=== PATIENT | male | born 1985 ===

== ENCOUNTER 2018-01-16 15:06 | Emergency (ER) | payer MEDICAID ==
[2018-01-16] MEDS ORDERED: Naloxone 0.4 mg/ml Inj (Adult) IM STA (15:27)
--- NOTE | 2018-01-16 15:28 | ED PDOC ---
HPI: Psych/Substance Abuse Time Seen by Provider: 01/16/18 15:27 Chief Complaint (Nursing): Substance Abuse Chief Complaint (Provider): substance abuse History Per: Patient Additional Complaint(s): 32 y/o male presents for evaluation of substance abuse. Patient states he used 2 bad of heroin IV earlier today. Police gave patient narcan in the field. Patient denies any alcohol or use of any other drugs today. PMD: none Past Medical History Reviewed: Historical Data, Nursing Documentation, Vital Signs Vital Signs: Last Vital Signs Temp 99.1 F 01/16/18 15:12 Pulse 107 H 01/16/18 15:12 Resp 16 01/16/18 15:12 BP 113/55 L 01/16/18 15:12 Pulse Ox 90 L 01/16/18 15:12 - Medical History PMH: No Chronic Diseases - Family History Family History: States: No Known Family Hx - Living Arrangements Living Arrangements: With Family - Social History Current smoker - smoking cessation education provided: No Alcohol: None Drugs: Opiates (IV heroin) - Allergies Allergies/Adverse Reactions: Allergies Allergy/AdvReac Type Severity Reaction Status Date / Time No Known Allergies Allergy Verified 01/16/18 15:34 Review of Systems ROS Statement: Except As Marked, All Systems Reviewed And Found Negative Constitutional: Negative for: Fever Cardiovascular: Negative for: Chest Pain Psych: Positive for: Other (heroin abuse) Physical Exam - Reviewed Nursing Documentation Reviewed: Yes Vital Signs Reviewed: Yes - Physical Exam Appears: Positive for: Well, Non-toxic, No Acute Distress Skin: Positive for: Normal Color. Negative for: Rash Eye Exam: Positive for: Normal appearance Cardiovascular/Chest: Positive for: Regular Rate, Rhythm Respiratory: Positive for: Normal Breath Sounds. Negative for: Respiratory Distress Extremity: Positive for: Normal ROM Neurologic/Psych: Positive for: Other (responds to painful stimuli) - ECG O2 Sat by Pulse Oximetry: 90 Medical Decision Making Medical Decision Makin:10 pm: 32 y/o male with history of heroin abuse Plan: manager monitoring Narcan 0.4 mg IV O2 via mask Patient became more alert immediately after receiving Narcan. He is now oriented 3. He will continue to be monitored in ED. 5:15 pm: repeat vital signs are stable. Patient is awake, alert and oriented. He is stable for discharge. Disposition - Clinical Impression Clinical Impression: Heroin abuse - Patient ED Disposition Is Patient to be Admitted: No Counseled Patient/Family Regarding: Need For Followup - Disposition Referrals: [facility] [Outside] Disposition: Routine/Home Disposition Time: 17:16 Condition: STABLE Instructions: Opioid Use Disorder, Drug Abuse and Drug Addiction (DC) Forms: [facility] ([place])
[2018-01-16] MEDS ORDERED: Sodium Chloride 0.9% 1,000 ML IV STA (15:33)
[2018-01-16] MEDS ORDERED: Naloxone 0.4 mg/ml Inj (Adult) IVP STA ×2 (16:59→17:11)
[2018-01-16 17:27] VITALS: BP 125/80; PULSE 75; RESP 18; TEMP 97.9; O2SAT 99
== END 2018-01-16 17:39 | disposition home or self-care (01) ==
LOC: H.ER 15:06
DX: F11.10 Opioid abuse, uncomplicated (principal)
CPT/HCPCS: 96360; 96372; 99283; J2310; J7030